=== PATIENT | male | born 1950 | race Caucasian/White ===

== ENCOUNTER 2019-03-25 10:17 | Day surgery (SDC) | payer MEDICARE, BC ==
[2019-03-25] MEDS ORDERED: PROPOFOL 10 MG/ML VIAL IV ONE (10:18)
[2019-03-25] MEDS ORDERED: LIDOCAINE 2% MDV (20MG/ML) 20ML VIAL IV ONE (10:18)
[2019-03-25] MEDS ORDERED: RINGERS SOLUTION,LACTATED 1,000 ML IV ONE (10:54)
--- NOTE | 2019-03-26 08:50 | Operative Note ---
DATE OF SURGERY: 03/25/2019 PREOPERATIVE DIAGNOSIS: Right flank mass. POSTOPERATIVE DIAGNOSIS: Right flank mass. OPERATION: Excision of right flank mass, measuring 5 cm into the subcutaneous. SURGEON: Kwaku Finney D.O. REFERRING PHYSICIAN: Guzman Ramirez D.O. ANESTHESIA: General. INDICATIONS: The patient is a 69-year-old male who had had this area excised before. We did discuss excision. The risks, benefits, and alternatives were discussed. The risks include bleeding, infection, recurrence. He understood this fully. Consent was signed. Questions were answered. PROCEDURE: He was taken to the operating room and placed in the supine position. General anesthesia was administered per the Department of Anesthesia. The patient's flank was prepped and draped in sterile fashion. Overlying the mass anesthetized with a total of 10 mL of 0.25% Sensorcaine with epinephrine. A 4 cm incision was made. This was carried down to the subcutaneous tissues. A lipomatous mass was encountered. This was dissected from the surrounding tissue with cautery. This was then passed off the field. This measured 5 cm in the subcutaneous. The wound was then closed with 3-0 and 4-0 Vicryl. Steri-Strips were applied. He was taken to the recovery room in satisfactory condition. FINDINGS AT SURGERY: A right flank mass excised as above. CC: Dr. Guzman DE LA CRUZ
== END 2019-03-25 12:50 | disposition home or self-care (01) ==
LOC: SUR 10:17
PROVIDERS: ATTEND Surgery
DX: R22.2 Localized swelling, mass and lump, trunk (principal); G47.33 Obstructive sleep apnea (adult) (pediatric)
CPT/HCPCS: J7120